=== PATIENT | male | born 1965 | race Two or more races ===

== ENCOUNTER 2021-03-04 14:49 | Inpatient (IN) | payer SELFPAY ==
[~2021-03-04] VITALS: Ht 175.3 cm; Wt 113.2 kg
--- NOTE | 2021-03-04 07:00 | NUR ---
RN NOTES SLEEPING BUT AROUASBLE, MORNING CARE RENDERED, NOT IN DISTRESS, NO PAIN NOTED, MORNING CARE RENDERED
--- NOTE | 2021-03-04 14:50 | NUR ---
[address]IB[address] FOR SEIZURE X 1MIN, WITNESSED BY FRIENDS +ORAL TRAUMA. PT LETHARGIC, RESPOSIVE TO PAIN STIMULI. TOLERATING R/A WELL WITH NO SOB AT 98%. ABRASION TO L ELBOW NOTED. CONNECTED PT TO POX AND MONITOR. SEIZURE AND SAFETY PROTOCOL IN PLACE
[2021-03-04 15:16] LABS: BASOPHILS # (AUTO) 0.1 K/uL (0.0-0.2); BASOPHILS % (AUTO) 0.6 % (0.0-2.0); EOSINOPHILS % (AUTO) 1.9 % (0.0-6.0); HEMATOCRIT 35 % (39-51); HEMOGLOBIN 10.6 g/dL (13.5-17.5); LYMPHOCYTES # (AUTO) 2.2 K/uL (0.8-4.8); LYMPHOCYTES % (AUTO) 22.7 % (20.0-44.0); MEAN CORPUSCULAR HGB CONC 31 g/dl (31.0-36.0); MEAN CORPUSCULAR VOLUME 74 fL (80-96); MONOCYTES # (AUTO) 0.8 K/uL (0.1-1.30); MONOCYTES % (AUTO) 7.8 % (2.0-12.0); NEUTROPHILS # (AUTO) 6.4 K/uL (1.8-8.9); PLATELET COUNT (AUTO) 316 K/uL (150-450); RED BLOOD CELL COUNT(AUTO) 4.73 MIL/uL (4.5-6.0); WHITE BLOOD COUNT (AUTO) 9.6 K/uL (4.3-11.0)
--- NOTE | 2021-03-04 15:17 | NUR ---
RAC #20G S/L; PATENT AND INTACT BLOOD COLLECTED AND SENT TO LAB
--- NOTE | 2021-03-04 15:19 | NUR ---
[employer] AT PT'S BEDSIDE
[2021-03-04] MEDS ORDERED: LORAZEPAM INJ 2 MG/ML VIAL IV ONE (15:30)
[2021-03-04] MEDS ORDERED: LEVETIRACETAM (500MG) 1,000 MG in IV NS 0.9% 100 ML IV SCH (15:30)
[2021-03-04] MEDS ORDERED: LORAZEPAM INJ 2 MG/ML VIAL ONE (15:33)
--- NOTE | 2021-03-04 15:42 | NUR ---
PT TAKEN TO CT VIA JIMENA
[2021-03-04 16:01] LABS: CALCIUM, SERUM 8.5 mg/dL (8.5-10.1); CARBON DIOXIDE 25 mmol/L (21-32); CHLORIDE 105 mmol/L (98-107); CREATININE 1.1 mg/dL (0.6-1.3); GLUCOSE 99 mg/dL (74-106); POTASSIUM 4.1 mmol/L (3.5-5.1); SODIUM SERUM 140 mmol/L (136-145); UREA NITROGEN, BLOOD 21 mg/dL (7-18)
[2021-03-04 16:07] LABS: ALANINE AMINOTRANSFERASE 15 U/L (12-78); ALBUMIN 3.5 g/dL (3.4-5.0); ALCOHOL, BLOOD < 3 mg/dL (0-0); ALKALINE PHOSPHATASE 92 U/L (46-116); ASPARTATE AMINOTRANSFERASE 13 U/L (15-37); BILIRUBIN,DIRECT 0.1 mg/dL (0.0-0.2); BILIRUBIN,TOTAL 0.1 mg/dL (0.2-1.0); TOTAL PROTEIN, SERUM 8.1 g/dL (6.4-8.2)
--- NOTE | 2021-03-04 16:11 | NUR ---
URINE COLLECTED AND SENT TO LAB
[2021-03-04 16:32] LABS: EOSINOPHILS % (MANUAL) 1 % (0-4); LYMPHOCYTES % (MANUAL) 19 % (16-48); MONOCYTES % (MANUAL) 3 % (0-11.0); NEUTROPHILS % (MANUAL) 77 (42-76)
[2021-03-04] MEDS ORDERED: hydrALAZINE HCL IV 20 MG VIAL ONE (18:43)
--- NOTE | 2021-03-04 18:49 | NUR ---
BP 176/87. ADMINISTERED HYDRALAZINE 5MG IVP ORDERED. WILL REASSESS BP IN 30 MINUTES
[2021-03-04] MEDS ORDERED: hydrALAZINE HCL IV 20 MG VIAL IV ONE (19:00)
--- NOTE | 2021-03-04 19:39 | NUR ---
COVID SWAB COLLECTED AND SENT TO LAB
--- NOTE | 2021-03-04 19:44 | NUR ---
BP 145/87. PT IN NO DISTRESS AT THIS TIME
[2021-03-04] MEDS ORDERED: ACETAMINOPHEN 650 MG/SUPP.RECT RC PRN (20:30)
[2021-03-04] MEDS ORDERED: IV D5/0.45 NACL 1,000 ML IV PRN (20:30)
[2021-03-04] MEDS ORDERED: Z GUARD REMEDY 2 OZ OINT TP PRN (20:30)
[2021-03-04] MEDS ORDERED: LORAZEPAM INJ 2 MG/ML VIAL IV PRN (20:30)
[2021-03-04] MEDS ORDERED: ONDANSETRON HCL/PF 4 MG/2 ML VIAL IVP PRN (20:30)
--- NOTE | 2021-03-04 21:43 | NUR ---
REPORT GIVEN TO YURIDIA DUBOSE FOR LAURA
--- NOTE | 2021-03-04 21:55 | NUR ---
patient being transferred to [facility]
--- NOTE | 2021-03-04 22:00 | NUR ---
RN NOTES RECEIVED PATINE FROM ER WITH DX. OF SEPSIS, A/OX2, HOMELESS, UNABLE TO ANSWER ALL ADMISSION QUESTION, UNKNOWN IF PATIENT IS VACCINATED, SR ON TELE MONITOR HR-85, SKIN ASSESSMENT DONE, CALL LIGHT WITHIN REACH, SIDERAILSUPX2, WILL CONTINUE TO MONITOR
[2021-03-04 23:00] VITALS: BP 147/86
[2021-03-05] MEDS ORDERED: Folic acid 1 MG in IV D5W 50 ML IV SCH (00:30)
[2021-03-05] MEDS ORDERED: Thiamine 100 MG in IV D5W 50 ML IV SCH (00:30)
[2021-03-05] MEDS ORDERED: LEVETIRACETAM (500MG) 500 MG/5 ML VIAL IV ONE (01:18)
[2021-03-05] MEDS ORDERED: Thiamine 100 MG/ML VIAL ONE (01:18)
[2021-03-05] MEDS ORDERED: Folic acid 1 MG/0.2 ML VIAL ONE (01:19)
[2021-03-05 04:00] VITALS: BP 149/80
[2021-03-05] MEDS: LEVETIRACETAM (500MG) 500 MG in IV NS 0.9% 100 ML IV SCH ×2 (04:12→15:50)
--- NOTE | 2021-03-05 07:00 | NUR ---
RN NOTES SLEEPING BUT AROUASBLE, MORNING CARE RENDERED, NOT IN DISTRESS, NO PAIN NOTED, MORNING CARE RENDERED
[2021-03-05 07:06] LABS: BASOPHILS % (AUTO) 0.4 % (0.0-2.0); HEMATOCRIT 33 % (39-51); HEMOGLOBIN 10.2 g/dL (13.5-17.5); LYMPHOCYTES # (AUTO) 1.8 K/uL (0.8-4.8); LYMPHOCYTES % (AUTO) 16.7 % (20.0-44.0); MEAN CORPUSCULAR HGB CONC 31 g/dl (31.0-36.0); MEAN CORPUSCULAR VOLUME 73 fL (80-96); MONOCYTES # (AUTO) 0.8 K/uL (0.1-1.30); MONOCYTES % (AUTO) 7.4 % (2.0-12.0); NEUTROPHILS # (AUTO) 7.9 K/uL (1.8-8.9); NEUTROPHILS % (AUTO) 73.5 % (43.0-81.0); PLATELET COUNT (AUTO) 283 K/uL (150-450); RED BLOOD CELL COUNT(AUTO) 4.52 MIL/uL (4.5-6.0); WHITE BLOOD COUNT (AUTO) 10.7 K/uL (4.3-11.0)
[2021-03-05 07:12] LABS: CALCIUM, SERUM 8.1 mg/dL (8.5-10.1); CREATININE 0.8 mg/dL (0.6-1.3); MAGNESIUM 1.9 mg/dL (1.8-2.4); PHOSPHORUS 3.1 mg/dL (2.5-4.9); POTASSIUM 3.9 mmol/L (3.5-5.1)
[2021-03-05 07:27] LABS: THYROID STIMULATING HORMONE 0.57 uIU/mL (0.358-3.74)
--- NOTE | 2021-03-05 07:41 | NUR ---
RN OPENING NOTE- PT W DX SEPSIS, ASLEEP THOUGH EASILY AWAKENED. IRRITABLE. HOMELESS, UNABLE TO ANSWER QUESTIONS, SR ON TELE MONITOR HR-82, CALL LIGHT WITHIN REACH, SIDERAILS UPX2, WILL CONTINUE TO MONITOR/ASSIST
[2021-03-05 08:00] VITALS: BP 129/77
[2021-03-05] MEDS: PANTOPRAZOLE 40 MG VIAL IV SCH (09:12)
[2021-03-05] MEDS: ENOXAPARIN SODIUM 40 MG/0.4 ML DISP.SYRIN SQ SCH (09:15)
[2021-03-05 16:00] VITALS: BP 112/71
--- NOTE | 2021-03-05 19:10 | NUR ---
TELE/RN OPENING NOTE RECEIVED PATIENT SLEEPING IN BED. ALERT AND ORIENTED X 2. ABLE TO MAKE NEEDS KNOWN. DENIES PAIN AT THIS TIME. CONTINUES ON ROOM AIR WITH NO S/SX OF RESPIRATORY DISTRESS NOTED. IV ACCESS TO RIGHT AC #20G INTACT AND PATENT. CONTINUES ON IVF D5 1/2 NS @ 75ML/HR. CONTINUES ON TELE MONITOR WITH CURRENT READING SR. CALL LIGHT WITHIN REACH. ASPIRATION, FALL AND SAFETY PRECAUTIONS MAINTAINED. WILL CONTINUE TO MONITOR.
[2021-03-05 20:17] VITALS: BP 105/57
[2021-03-05] MEDS ORDERED: FOLIC ACID 1 MG TABLET PO SCH (23:00)
[2021-03-05] MEDS ORDERED: THIAMINE HCL 100 MG TABLET PO SCH (23:00)
[2021-03-06 00:18] VITALS: BP 105/57
[2021-03-06] MEDS: LEVETIRACETAM (500MG) 500 MG in IV NS 0.9% 100 ML IV SCH (03:21)
[2021-03-06 04:11] VITALS: BP 121/86
--- NOTE | 2021-03-06 04:15 | NUR ---
TELE/RN NOTE PATIENTS IV TO RIGHT AC INFILTRATED. IV REMOVED WITH TIP INTACT. MINIMAL AMOUNTS OF BLEEDING NOTED. PRESSURE DRESSING APPLIED. NEW IV INSERTED TO RIGHT WRIST #22G. WILL CONTINUE TO MONITOR.
--- NOTE | 2021-03-06 06:10 | NUR ---
TELE/RN CLOSING NOTE PATIENT CURRENTLY SLEEPING IN BED. ALERT AND ORIENTED X 2. ABLE TO MAKE NEEDS KNOWN. DENIES PAIN AT THIS TIME. CONTINUES ON ROOM AIR WITH NO S/SX OF RESPIRATORY DISTRESS NOTED. IV ACCESS TO RIGHT WRIST #22G INTACT AND PATENT. CONTINUES ON IVF D5 1/2 NS @ 75ML/HR. CONTINUES ON TELE MONITOR WITH CURRENT READING SR HR 86. CALL LIGHT WITHIN REACH. ASPIRATION, FALL AND SAFETY PRECAUTIONS MAINTAINED. WILL ENDORSE PLAN OF CARE TO ONCOMING SHIFT.
[2021-03-06 06:35] LABS: CALCIUM, SERUM 8.6 mg/dL (8.5-10.1); CREATININE 0.8 mg/dL (0.6-1.3); MAGNESIUM 1.9 mg/dL (1.8-2.4); PHOSPHORUS 3.9 mg/dL (2.5-4.9); POTASSIUM 4.4 mmol/L (3.5-5.1)
[2021-03-06 06:52] LABS: BASOPHILS # (AUTO) 0.1 K/uL (0.0-0.2); BASOPHILS % (AUTO) 0.6 % (0.0-2.0); EOSINOPHILS % (AUTO) 1.9 % (0.0-6.0); HEMATOCRIT 35 % (39-51); LYMPHOCYTES # (AUTO) 1.7 K/uL (0.8-4.8); LYMPHOCYTES % (AUTO) 17.5 % (20.0-44.0); MEAN CORPUSCULAR HGB CONC 31 g/dl (31.0-36.0); MEAN CORPUSCULAR VOLUME 74 fL (80-96); MONOCYTES # (AUTO) 0.7 K/uL (0.1-1.30); MONOCYTES % (AUTO) 7.6 % (2.0-12.0); NEUTROPHILS # (AUTO) 6.9 K/uL (1.8-8.9); NEUTROPHILS % (AUTO) 72.4 % (43.0-81.0); PLATELET COUNT (AUTO) 302 K/uL (150-450); RED BLOOD CELL COUNT(AUTO) 4.79 MIL/uL (4.5-6.0); WHITE BLOOD COUNT (AUTO) 9.6 K/uL (4.3-11.0)
--- NOTE | 2021-03-06 07:15 | NUR ---
NURSING HOME ASSISTANT CLOSING NOTE PATIENT IN BED ASLEEP IN BED, BUT EASILY AROUSABLE. PATIENT IS ALERT AND ORIENTED X 2. ABLE TO MAKE NEEDS KNOWN BUT IS EVASIVE IN ANSWERING QUESTIONS/ INQUIRY. HE DENIES PAIN OR DISCOMFORT AT THIS TIME. PATIENT IS ON ROOM AIR WITH NO S/SX OF RESPIRATORY DISTRESS NOTED. IV ACCESS TO RIGHT WRIST #22G INTACT WITH ONGOING IVF D5 1/2 NS @ 75ML/HR. HE IS ON TELE MONITOR WITH CURRENT READING SR HR 80'S. CALL LIGHT WITHIN REACH. SAFETY PRECAUTIONS MAINTAINED WITH BED ON LOWEST LOCKED POSITION, BED ALARM ON. WILL CONTINUE MONITORING PATIENT.
[2021-03-06 08:00] VITALS: BP 127/76
[2021-03-06] MEDS: PANTOPRAZOLE 40 MG VIAL IV SCH (08:32)
[2021-03-06] MEDS: ENOXAPARIN SODIUM 40 MG/0.4 ML DISP.SYRIN SQ SCH (08:39)
--- NOTE | 2021-03-06 09:35 | NUR ---
RN NOTE PATIENT SUDDENLY STARTED GETTING AGITATED AND INSISTENT ON LEAVING. PATIENT DISCONNECTED HIS IV LINE AND WENT TO THE NURSES STATION AND DEMANDED TO BE DISCHARGED. PATIENT ASKED TO GO BACK TO HIS ROOM AND EXPLAINED REPERCUSSIONS OF ACTION. PATIENT VERBALIZED UNDERSTANDING AND STILL WANTS TO GO AGAINST [facility]ICAL [facility]ISE. DR. VARGAS AWARE OF PATIENT'S DECISION. PATIENT SIGNED AMA FORM AND ATTACHED TO CHART. ID BAND REMOVED. IV ACCESS REMOVED AND COVERED WITH DRY DRESSING, TOLERATED WELL. PATIENT ACCOMPANIED BY SECURITY DOWNSTAIRS FOR DISCHARGE. ENDORSED ACCORDINGLY.
--- NOTE | 2021-03-08 09:22 | NUR ---
SS consult for homelessness was requested on 03/04/2021 however, SW not available during holiday.
== END 2021-03-06 09:30 | disposition left against medical advice (07) | DRG 101 ==
LOC: EDBD 14:53 → ER 14:53 → TELE 21:46
PROVIDERS: ATTEND Student in an Organized Health Care Education/Training Program
DX: R56.9 Unspecified convulsions (principal); D64.9 Anemia, unspecified; F32.A Depression, unspecified; I10 Essential (primary) hypertension; Z20.822 Contact with and (suspected) exposure to COVID-19; Z59.00 Homelessness unspecified; R82.6 Abnormal urine levels of substances chiefly nonmedicinal as to source; R79.89 Other specified abnormal findings of blood chemistry; F10.21 Alcohol dependence, in remission
CPT/HCPCS: 36415; 70450-TC; 71045-TC; 72125-TC; 73080-TC; 80048-TC; 80076-TC; 83735-TC; 84100-TC; 84443-TC; 84484-TC; 85025-TC; 87081-TC; 97116-TC; 97530-TC; C9113; C9803; G0378; G0480; J0360; J1650; J1953; J2060; J3411; J3490; J7030; J7060; U0003